=== PATIENT | female | born 1955 | race Caucasian/White ===

== ENCOUNTER → 2022-03-14 | Outpatient (CLI) | payer MEDICARE, MEDICAID ==
[~2022-03-14] MED LIST: LIDOCAINE 1% Multi-Dose 20 ML VIAL. INJ ONE; LIDOCAINE 2%/EPI 1:100,000 20 ML VIAL. INJ ONE
--- NOTE | 2022-03-14 16:15 | RAD ---
EXAM: 1. STEREOTACTICALLY GUIDED VACUUM ASSISTED LEFT BREAST CORE BIOPSY. 2. POSTCLIP DIGITAL LEFT MAMMOGRAPHY. 3. SPECIMEN RADIOGRAPH. HISTORY: Left breast microcalcifications. Stereotactic biopsy is requested. FINDINGS: The procedure and its risks and benefits were discussed with the patient. Risks discussed i ncluded, but were not limited to, pain, infection, bleeding and need for repeat biopsy. The patient p rovided verbal and written consent. A timeout procedure was performed. The target calcifications superolaterally were localized stereotactically. The overlying skin was gomez rilely prepped and infiltrated with 1% lidocaine for local anesthesia. The deeper soft tissues were i nfiltrated with lidocaine with epinephrine for anesthesia and hemostasis. A 9 gauge vacuum-assisted c ore biopsy system was advanced to the target under stereotactic guidance. 6 core biopsy specimens wer e obtained. A specimen radiograph demonstrates calcifications within the specimen. A postbiopsy clip was not placed as the cannula localized outside the skin. Postoperative images were obtained. Instrum entation was withdrawn and pressure held to hemostasis. A sterile dressing was placed. On review of the specimen radiographs, the target calcifications were not sampled. The procedure was repeated through the same skin site. 6 additional core specimens were obtained. A specimen radiograph demonstrates the targeted calcifications within the specimen. The cannula was advanced into the skin site and a postbiopsy clip was placed in the region sampled. Instrumentation was withdrawn and press ure held to hemostasis. A sterile dressing was placed. There were no immediate complications. Postclip digital left mammography was obtained in CC and MLO projections and interpreted on a [employer] ed workstation. Some of the target calcifications have been removed on the second radiograph except. The postbiopsy clip is approximately 7 mm anterior to the biopsied site. There are mild postprocedura l changes. IMPRESSION: 1. Successful stereotactically guided vacuum assisted core biopsy of left breast microcalcifications with clip placement. 2. The target calcifications are included on the specimen radiograph. 3. Postclip mammography demonstrates the postbiopsy clip 7 mm anterior to the biopsied site. Electronically signed by: Regis Griffin MD (03/14/2022 4:13 PM) [id number]
--- NOTE | 2022-03-16 19:09 | PATHOLOGY ---
[facility] Accession Number: [id number] . 01 Material submitted: . PART A: breast - LEFT BREAST TISSUE PART B: breast - LEFT BREAST TISSUE . 01 Clinical history: . CALCS-LT BREAST . 02 Diagnosis: A. Breast tissue, left breast tissue core biopsies: - Predominantly fatty breast tissue showing focal stromal fibrosis; no calcifications identified. . B. Breast tissue, left breast tissue #2 core biopsies: - Fibroadenomatous changes with stromal hyalinization and focal calcifications. . (JPM:charmaine; 03/16/2022) R 03/16/2022 1749 Local . 02 Comment: There is no atypia or evidence of malignancy. (JPM:application security developer; 03/16/2022) . 02 Electronically signed: . Don Stevenson MD, Pathologist NPI- [id number] . 01 Gross description: . A. The specimen is received in formalin, labeled "Sophia Arreola, left breast tissue". Received are multiple, melendez-pink to yellow, lobulated, soft tissue cores ranging in length from 0.3-2.8 cm and ranging in diameter from 0.2-0.4 cm. A portion of the tissue is received in a pink cassette and is submitted in cassette A1. The remainder of the specimen is submitted in cassettes A2 to A3. . The specimen is removed from the patient at 1400 and placed in formalin at 1411 on 03/14/2022. The specimen is removed from formalin at 2240 on 03/14/2022. The specimen is in formalin for greater than 6 hours and less than 72 hours. (JGG; 03/14/2022) . B. The specimen is received in formalin, labeled "Sophia Arreola, left breast tissue". Received within a plastic cassette are multiple needle cores of fibrofatty tissue measuring 2.4 x 1.5 x 0.7 cm in aggregate dimensions. The specimen is transferred to cassettes B1 through B3. The cold ischemic time is 11 minutes. The total formalin fixation time is 28 hours and 19 minutes. (CAA; 03/15/2022) JGG/NavGG 03/16/2022 1426 Local . 02 Pathologist provided ICD-10: N60.32 . 02 CPT . 609231, 470407 Specimen Comment: A courtesy copy of this report has been sent to [phone], [phone] Specimen Comment: [id number] Specimen Comment: Report sent to / DR JONAS Specimen Comment: A duplicate report has been generated due to demographic updates. Performed at: 01 [facility] [address], [place] [id number] MD Drake Cantu MD Phone: [phone] Performed at: 02 [facility] [address] [place], [place] [id number] MD Don Stevenson MD Phone: [phone]
== END | disposition home or self-care (01) ==
LOC: MAMMO 12:41
PROVIDERS: ATTEND Family Medicine
DX: R92.0 Mammographic microcalcification found on diagnostic imaging of breast (principal); Z88.0 Allergy status to penicillin; Z88.1 Allergy status to other antibiotic agents
CPT/HCPCS: 19081; 77065; J3490; 88305